=== PATIENT | female | born 1990 | race Caucasian/White ===

== ENCOUNTER 2018-03-29 21:48 | Emergency (ER) | payer BC ==
[2018-03-29] MEDS ORDERED: Ondansetron ODT 4 MG TAB ONE (22:40)
[2018-03-29 22:43] LABS: #Basophils 0.1 thou/uL (0.0-0.2); #Eosinphils 0.4 thou/uL (0.0-0.7); #Monocytes 0.7 thou/uL (0.11-0.59); %Basophils 0.8 % (0.0-1.0); %Eosinophils 4.5 % (0.0-10.0); %Lymphocytes 43.8 % (21.0-51.0); %Monocytes 7.2 % (0.0-10.0); %Neutrophils 43.8 % (42.0-75.0); Hemoglobin 15.1 g/dL (12.0-16.0); Mean Corpuscular HGB CONC 35.3 g/dL (32.0-36.0); Mean Corpuscular Hemoglobin 33.8 pg (27.0-31.0); Mean Corpuscular Volume 95.8 fl (81.0-99.0); Mean Platelet Volume 9.6 fL (7.4-10.4); Platelet Count 241 thou/uL (130-400); RBC Distribution Width 10.9 % (11.5-14.5); Red Blood Cell (RBC) Count 4.47 mill/uL (4.20-5.40); White Blood Cell (WBC) Count 9.1 thou/uL (4.8-10.8)
[2018-03-29 22:54] LABS: ALT (SGPT) 32 U/L (8-55); AST (SGOT) 23 U/L (5-34); Albumin 4.3 g/dL (3.5-5.0); Alkaline Phosphatase 55 U/L (40-150); Anion Gap 14 mmol/L (10-20); BUN (Urea Nitrogen) 14 mg/dL (7.0-18.7); Calc. Creatinine Clearance 0 mL/min (70-130); Calcium 9.4 mg/dL (7.8-10.44); Carbon Dioxide 22 mmol/L (22-29); Chloride 108 mmol/L (98-107); Estimated GFR-MDRD 87; Globulin 2.9 g/dL (2.4-3.5); Glucose 133 mg/dL (70-105); Lipase 30 U/L (8-78); Potassium 3.7 mmol/L (3.5-5.1); Protein, Total 7.2 g/dL (6.0-8.3); Sodium 140 mmol/L (136-145)
[2018-03-30] MEDS ORDERED: Promethazine HCl 25 MG/ML VIAL ONE (00:48)
[2018-03-30] MEDS ORDERED: diphenhydrAMINE 50 MG/ML VIAL ONE (00:48)
[2018-03-30 01:27] LABS: Bilirubin Negative (Negative); Blood, Urine Negative (Negative); Clarity CLEAR (Clear); Glucose, Urine (Dipstick) Negative (Negative); Leukocyte Negative (Negative); Nitrite Negative (Negative); Protein, Urine (Dipstick) Negative (Neg-Trace); Specific Gravity, Urine 1.024 (1.002-1.036)
[2018-03-30 01:28] LABS: Pregnancy Test - Urine (BHCG) Negative (Negative); Pregu Control Background? CLEAR/WHITE (CLR/WHITE); Pregu Control Bar Appear? YES (CONTROL BAR); Specific Gravity 1.024 (1.002-1.036)
[2018-03-30] MEDS ORDERED: Metoclopramide HCl 10 MG/2 ML VIAL ONE (02:11)
[2018-03-30] MEDS ORDERED: Dicyclomine 20 MG TAB ONE (02:11)
--- NOTE | 2018-03-30 11:04 | CT ---
PRELIMINARY REPORT/[facility]/EMERGENTY AFTER-HOURS PROCEDURE CT Abdomen and Pelvis With Intravenous Contrast CLINICAL HISTORY: 28 years old, female; Pain; Abdominal pain; Generalized; Patient HX: F28 presents to ed with nausea a nd vomiting that has persisted for 8 days. Pt reports not being able to hold anything down as well as diarrhea (4x in last 24 hr) and some lower abdominal pain. Pt reports pcp prescribed medicine but no help. Hx-pt reports having tb and still tests positive but has been treated. , Gallbladder surgery, ra. TECHNIQUE: Axial computed tomography images of the abdomen and pelvis with intravenous contrast. Coronal reforma tted images were created and reviewed. COMPARISON: No relevant prior studies available. FINDINGS: Lung bases: Normal. No mass. No consolidation. Mediastinum: Small-sized hiatal hernia. ABDOMEN: Liver: Normal. Gallbladder and bile ducts: Gallbladder is surgically absent. Pancreas: Normal. Spleen: Normal. Adrenals: Normal. Kidneys and ureters: Normal. Stomach and bowel: Normal. PELVIS: Appendix: Appendix is normal. Bladder: Normal. Reproductive: Normal as visualized. ABDOMEN and PELVIS: Intraperitoneal space: Normal. No free air. No significant fluid collection. Bones/joints: No acute fracture. No dislocation. Soft tissues: Normal. Vasculature: Normal. No abdominal aortic aneurysm. Lymph nodes: Normal. IMPRESSION: 1. No acute findings. 2. Non-acute findings are described above. Thank you for allowing us to participate in the care of your patient. Dictated and Authenticated by: Tor Cruz MD 03/30/2018 3:40 AM Central Time ([place] & [place]) FINAL REPORT EMERGENCY AFTER HOURS CT OF THE ABDOMEN AND PELVIS WITH CONTRAST: FINDINGS/IMPRESSION: I agree with the findings and impression given in the preliminary report by AD physician. No eviden ce of acute intraabdominal/pelvic abnormality. POS: [facility]
[2018-03-30] MEDS ORDERED: ISOVUE-370 76%-LOCM 1 ML ONE (12:09)
--- NOTE | 2018-04-01 14:49 | EKG ---
Test Reason : Blood Pressure : / mmHG Vent. Rate : 066 BPM Atrial Rate : 066 BPM P-R Int : 134 ms QRS Dur : 080 ms QT Int : 434 ms P-R-T Axes : 032 026 067 degrees QTc Int : 454 ms Normal sinus rhythm Possible Left atrial enlargement Nonspecific ST abnormality Abnormal ECG Confirmed by ANN MARIE ALVARADO M.D. ([id number]), news editor KHOI MAURER ([id number]) on 04/01/2018 2:49:12 PM Referred By: Confirmed By:ANN MARIE ALVARADO M.D.
== END 2018-03-30 04:22 | disposition home or self-care (01) ==
LOC: ERS 21:48
DX: R11.2 Nausea with vomiting, unspecified (principal); F41.9 Anxiety disorder, unspecified; F32.9 Major depressive disorder, single episode, unspecified; Z79.899 Other long term (current) drug therapy
CPT/HCPCS: 36415; 74177; 80053; 81003; 81025; 83690; 85025; 93005; 96361; 96365; 96375; J1200; J2550; J2765; Q0162

== ENCOUNTER 2018-05-12 08:03 | Day surgery (SDC) | payer BC ==
[2018-05-11 10:57] VITALS: BMI 41.2
[2018-05-12 08:58] LABS: BHCG - Serum Negative (NEGATIVE); Pregs Control Background? CLEAR/WHITE (CLR/WHITE); Pregs Control Bar Appear? YES (CONTROL BAR)
[2018-05-12] MEDS ORDERED: Lidocaine 1% PF 5 ML VIAL ONE (10:35)
[2018-05-12] MEDS ORDERED: PROPOFOL 200 MG/20 ML VIAL ONE (10:35)
--- NOTE | 2018-05-12 11:50 | OP ---
DATE OF PROCEDURE: 05/12/2018 PROCEDURES: Esophagogastroduodenoscopy with biopsy, colonoscopy with biopsy. INDICATION FOR PROCEDURE: Abdominal pain, diarrhea. DESCRIPTION OF PROCEDURE: After the risks and benefits of the procedure were explained to the patien t including risk of bleeding, infection, perforation, reaction to anesthesia and/or pain, informed co nsent was obtained. The patient was then taken to the endoscopy suite where deep sedation was admini stered via propofol and anesthesia support. Once adequate sedation was achieved, the standard gastro scope was introduced into the mouth with intubation of the esophagus, stomach and proximal small inte omari with the findings listed below. Upon completion of this portion of the procedure, all equipmen t was removed. The bed was rotated 180 degrees in preparation for the colonoscopy. A digital rectal examination was initially performed. The standard colonoscope was then introduced into the rectum an d advanced to the terminal ileum with the findings listed below. The quality of the prep was excelle nt. The patient tolerated the procedure well with no immediate perioperative complications. EGD FINDINGS: Esophagus: Normal appearing mucosa was seen in the proximal and mid esophagus. There were four line ar erosions extending proximally from the GE junction extending around 1 cm in length, but not involv ing confluent folds. There was no associated ulceration with these erosions in the distal esophagus. There was no evidence of mass, lesions or active/recent bleeding. The diaphragmatic pinch was seen at 38 cm while the GE junction was well seen at 36 cm denoting a 2 cm hiatal hernia. STOMACH: Normal-appearing mucosa was seen in the gastric cardia, fundus, body, antrum and incisura. A small hiatal hernia was seen on gastric retroflexion. There was no evidence of erosions, ulcerati ons, mass lesions or active/recent bleeding. Duodenum: Normal-appearing mucosa was seen in both the duodenal bulb and second portion of the duode num. There was no evidence of erosions, ulcerations, mass lesions, scalloping of the folds or active /recent bleeding. Random biopsies were obtained from the duodenal bulb and second portion of the duo denum for evaluation of possible celiac disease. IMPRESSION: 1. LA grade B reflux mediated erosive esophagitis. 2. Otherwise, normal upper endoscopy. COLONOSCOPY FINDINGS: Digital rectal examination: Normal digital rectal examination, FINDINGS: Normal appearing mucosa was seen in the terminal ileum, ileocecal valve, and within the ce cum and the appendiceal orifice. Normal-appearing mucosa was also seen in the cecum, ascending, holder sverse, descending, sigmoid colon, and rectum. Multiple random biopsies were taken throughout the co jose for evaluation of possible microscopic colitis. On rectal retroflexion, there were small interna l hemorrhoids noted. IMPRESSION: 1. Small internal hemorrhoids. 2. Otherwise, normal colonoscopy. RECOMMENDATIONS: 1. We will follow up on biopsy results with further management dictated by the pathology. 2. We will continue higher fiber diet with fodmap guidance for abdominal pain and diarrhea. 3. We would repeat colonoscopy at the age of 49 as part of screening for colonic neoplasm. 4. We would have the patient follow up in the GI clinic in 4 weeks for reevaluation of abdominal dorina n and diarrhea.
== END 2018-05-12 12:25 | disposition home or self-care (01) ==
LOC: SDC 08:03
PROVIDERS: ATTEND Internal Medicine
PROC: 0DB98ZX Excision of Duodenum, Via Natural or Artificial Opening Endoscopic, Diagnostic (ICD-10-PCS; principal; 2018-05-12)
PROC: 0DBE8ZX Excision of Large Intestine, Via Natural or Artificial Opening Endoscopic, Diagnostic (ICD-10-PCS; principal; 2018-05-12)
DX: K29.80 Duodenitis without bleeding (principal); K21.0 Gastro-esophageal reflux disease with esophagitis; K44.9 Diaphragmatic hernia without obstruction or gangrene; K64.8 Other hemorrhoids; K52.9 Noninfective gastroenteritis and colitis, unspecified; Z88.2 Allergy status to sulfonamides; Z88.1 Allergy status to other antibiotic agents; Z88.8 Allergy status to other drugs, medicaments and biological substances; Z79.899 Other long term (current) drug therapy; K59.09 Other constipation
CPT/HCPCS: 36415; 84703; 88305; J2001; J2704

== ENCOUNTER 2019-02-19 16:07 | Emergency (ER) | payer BC ==
[2019-02-19] MEDS ORDERED: predniSONE 20 MG TAB ONE (16:21)
[2019-02-19] MEDS ORDERED: diphenhydrAMINE 25 MG CAP ONE (16:21)
[2019-02-19] MEDS ORDERED: Famotidine 20 MG TAB ONE (16:21)
== END 2019-02-19 18:30 | disposition home or self-care (01) ==
LOC: ERS 16:07
DX: L50.0 Allergic urticaria (principal); F41.9 Anxiety disorder, unspecified; F32.9 Major depressive disorder, single episode, unspecified; Z79.899 Other long term (current) drug therapy; Z79.4 Long term (current) use of insulin
CPT/HCPCS: 96374; Q0163